=== PATIENT | male | born 1955 | race African-American/Black ===

== ENCOUNTER 2019-11-30 12:59 | Emergency (ER) | payer OTHER ==
[~2019-11-30] VITALS: Ht 177.8 cm; Wt 89.4 kg
[2019-11-30] MEDS ORDERED: LISINOPRIL10 MG PO (14:01)
[2019-11-30] MEDS ORDERED: AMLODIPINE BESY10 MG PO (14:01)
[2019-11-30 14:53] VITALS: BP 124/72
== END 2019-11-30 14:53 ==
LOC: ER 12:59
DX: S40.022A Contusion of left upper arm, initial encounter (principal); Z79.899 Other long term (current) drug therapy; X58.XXXA Exposure to other specified factors, initial encounter; Y93.89 Activity, other specified; Y92.89 Other specified places as the place of occurrence of the external cause; Y99.8 Other external cause status